=== PATIENT | male | born 2000 | race Caucasian/White ===

== ENCOUNTER 2023-10-16 07:09 | Day surgery (SDC) | payer OTHER ==
[~2023-10-16] VITALS: Ht 170.2 cm; Wt 77.1 kg
[2023-10-16] MEDS ORDERED: LIDOCAINE 2% 100 MG/5 ML UJET TP ONE (07:56)
[2023-10-16] MEDS ORDERED: fentaNYL citrate 0.05 MG/ML VIAL ONE (07:56)
[2023-10-16] MEDS ORDERED: MIDAZOLAM 2 MG/2 ML VIAL ONE (08:08)
[2023-10-16] MEDS: MIDAZOLAM 2 MG/2 ML VIAL IVP ONE (08:32)
[2023-10-16] MEDS: fentaNYL citrate 0.05 MG/ML VIAL IVP ONE (08:33)
== END 2023-10-16 09:52 | disposition home or self-care (01) ==
LOC: MMU 07:09 → MDS 07:09
PROVIDERS: ATTEND Internal Medicine Gastroenterology
DX: K62.5 Hemorrhage of anus and rectum (principal); K64.9 Unspecified hemorrhoids; Z80.0 Family history of malignant neoplasm of digestive organs
CPT/HCPCS: 45378; J2250; J3010

== ENCOUNTER 2023-12-24 09:06 | Emergency (ER) | payer OTHER ==
[~2023-12-24] VITALS: Ht 170.2 cm; Wt 76.8 kg
[2023-12-24 09:17] VITALS: BP 131/78; PULSE 80; RESP 18; TEMP 98; O2SAT 100
[2023-12-24] MEDS ORDERED: IBUP-2213 PO (09:46)
[2023-12-24] MEDS ORDERED: HYDR-2734 TP (09:46)
[2023-12-24] MEDS ORDERED: CEPH-588 PO (09:46)
[2023-12-24 09:53] VITALS: BP 131/78; PULSE 80; RESP 18; TEMP 98; O2SAT 100
== END 2023-12-24 09:53 | disposition home or self-care (01) ==
LOC: MED 09:06
DX: K61.0 Anal abscess (principal); R03.0 Elevated blood-pressure reading, without diagnosis of hypertension; R19.7 Diarrhea, unspecified
CPT/HCPCS: 99283